=== PATIENT | male | born 1950 | race Hispanic/Latino ===

== ENCOUNTER 2017-04-21 07:28 | Day surgery (SDC) | payer MEDICARE ==
[~2017-04-21] VITALS: Ht 165.1 cm; Wt 84.4 kg
[~2017-04-21 07:28] MED LIST: AMLODIPINE BESY10 MG PO; CRESTOR10 MG OR; LISINOP/HCTZ1 TA1 PO; LISINOPRIL10 MG OR; PROSCAR5 MG PO; SIMVASTATIN20 MG PO; TAMSULOSIN HCL0.4 MG PO; [UNRECOGNIZED DRUG - REMARK]
[2017-04-21 09:38] VITALS: BP 126/59
== END 2017-04-21 09:54 | disposition home or self-care (01) ==
LOC: ENDO 07:28
PROVIDERS: ATTEND Internal Medicine Gastroenterology
PROC: 0DBK8ZX Excision of Ascending Colon, Via Natural or Artificial Opening Endoscopic, Diagnostic (ICD-10-PCS; principal; 2017-04-21)
PROC: 0DBL8ZX Excision of Transverse Colon, Via Natural or Artificial Opening Endoscopic, Diagnostic (ICD-10-PCS; 2017-04-21)
PROC: 0DBH8ZX Excision of Cecum, Via Natural or Artificial Opening Endoscopic, Diagnostic (ICD-10-PCS; 2017-04-21)
PROC: 0DBP8ZX Excision of Rectum, Via Natural or Artificial Opening Endoscopic, Diagnostic (ICD-10-PCS; 2017-04-21)
DX: Z12.11 Encounter for screening for malignant neoplasm of colon (principal); K64.4 Residual hemorrhoidal skin tags; K64.8 Other hemorrhoids; K62.89 Other specified diseases of anus and rectum; K62.1 Rectal polyp; D12.0 Benign neoplasm of cecum; D12.2 Benign neoplasm of ascending colon; D12.3 Benign neoplasm of transverse colon; I10 Essential (primary) hypertension; E78.00 Pure hypercholesterolemia, unspecified; N40.0 Benign prostatic hyperplasia without lower urinary tract symptoms; Z80.0 Family history of malignant neoplasm of digestive organs; Z86.010 Personal history of colon polyps

== ENCOUNTER 2020-06-04 06:50 | Day surgery (SDC) | payer MEDICARE ==
[~2020-06-04] VITALS: Ht 160 cm; Wt 81.6 kg
[~2020-06-04 06:50] MED LIST changes: +FERROUS SULFAT325 MG PO; +OXYBUTYNIN CHLOR5 M1 PO
[2020-06-04 10:41] VITALS: BP 142/73
--- NOTE | 2020-06-17 14:14 | NUR ---
PER PHYSICIAN, PATIENT NOTIFIED OF PROCEDURE RESULTS, REPEAT COLONOSCOPY X 5 YEARS, HIGH FIBER DIET, OVER THE COUNTER SUPPOSITORIES/HYDROCORTISONE OINTMENT FOR SYMPTOMATIC HEMORRHOIDAL TREATMENT NEEDED. PATIENT AGREED WITH INFORMATION PROVIDED, NO FURTHER CONCERNS VOICED, AND WILL CALL US NEEDED.
== END 2020-06-04 10:55 | disposition home or self-care (01) ==
LOC: ENDO 06:50 → ORM 08:00 → ENDO 08:20 → ORM 09:20 → ENDO 10:55
PROVIDERS: ATTEND Surgery
PROC: 0DJD8ZZ Inspection of Lower Intestinal Tract, Via Natural or Artificial Opening Endoscopic (ICD-10-PCS; principal; 2020-06-04)
DX: Z12.11 Encounter for screening for malignant neoplasm of colon (principal); K57.30 Diverticulosis of large intestine without perforation or abscess without bleeding; K64.8 Other hemorrhoids; K64.4 Residual hemorrhoidal skin tags; I10 Essential (primary) hypertension; Z86.010 Personal history of colon polyps; Z11.59 Encounter for screening for other viral diseases

== ENCOUNTER 2023-05-08 06:25 | Observation (INO) | payer MEDICARE ==
[2023-05-08] VITALS (9 sets, daily range): BP systolic 145–172; BP diastolic 58–79
[~2023-05-08] VITALS: Ht 157.5 cm; Wt 80.7 kg
[~2023-05-08 06:25] MED LIST changes: +NORMODYNE/TRAN100 MG PO
[2023-05-09 02:53] VITALS: BP 148/62
[2023-05-09 05:07] VITALS: BP 150/59
[2023-05-09 07:08] LABS: HEMATOCRIT 33.5 % (39.0-50.0); HEMOGLOBIN 10.6 g/dl (14.0-18.0)
[2023-05-09 07:21] VITALS: BP 182/71
[2023-05-09 10:38] VITALS: BP 158/75
== END 2023-05-09 12:34 ==
LOC: ORM 06:25 → MS2 11:19 → ORM 12:30 → MS2 12:31
PROVIDERS: ADMIT Orthopaedic Surgery; ATTEND Orthopaedic Surgery
PROC: 0SRD0J9 Replacement of Left Knee Joint with Synthetic Substitute, Cemented, Open Approach (ICD-10-PCS; principal; 2023-05-08)
PROC: 3E0T3BZ Introduction of Anesthetic Agent into Peripheral Nerves and Plexi, Percutaneous Approach (ICD-10-PCS; 2023-05-08)
DX: M17.12 Unilateral primary osteoarthritis, left knee (principal); I10 Essential (primary) hypertension; E78.5 Hyperlipidemia, unspecified
CPT/HCPCS: J0690